=== PATIENT | female | born 1970 | race Caucasian/White ===

== ENCOUNTER → 2021-05-07 | Outpatient (CLI) | payer OTHER | LOC: LABNPT 08:39 | DX: Z53.9 Procedure and treatment not carried out, unspecified reason (principal) ==

== ENCOUNTER 2021-12-05 11:10 | Emergency (ER) | payer OTHER ==
[~2021-12-05] VITALS: Ht 160 cm; Wt 118.0 kg
[2021-12-05 11:37] VITALS: BP 150/80
[2021-12-05 11:47] LABS: BASOPHILS # (AUTO) 0.1 10^3/uL (0.0-0.1); BASOPHILS % (AUTO) 1 % (0-10); EOSINOPHILS # (AUTO) 0.2 10^3/uL (0.0-0.3); EOSINOPHILS % (AUTO) 2 % (0-10); HEMATOCRIT 44 % (35-52); HEMOGLOBIN 14.5 g/dL (11.5-16.0); LYMPHOCYTES # (AUTO) 3.4 10^3/uL (1.0-4.0); LYMPHOCYTES % (AUTO) 35 % (12-44); MEAN CORPUSCULAR HEMOGLOBIN 28 pg (25-34); MEAN CORPUSCULAR HGB CONC 33 g/dL (32-36); MEAN CORPUSCULAR VOLUME 86 fL (80-99); MEAN PLATELET VOLUME 9.8 fL (9.0-12.2); MONOCYTES # (AUTO) 0.5 10^3/uL (0.0-1.0); MONOCYTES % (AUTO) 5 % (0-12); NEUTROPHILS # (AUTO) 5.5 10^3/uL (1.8-7.8); NEUTROPHILS % (AUTO) 57 % (42-75); PLATELET COUNT 303 10^3/uL (130-400); WHITE BLOOD COUNT 9.7 10^3/uL (4.3-11.0)
--- NOTE | 2021-12-05 11:51 | ED Cardiac General ---
History of Present Illness General Chief Complaint: Chest Pain Stated Complaint: CHEST PAIN Nursing Triage Note: pt has has bilateral upper and lower ext swelling x 2 days, sob, and a-typical chest pain mid sternal. went to [facility], they sent pt here. Source: patient Exam Limitations: no limitations (LIZZETTE LANG APRN) History of Present Illness Date Seen by Provider: Dec 05, 2021 Time Seen by Provider: 11:23 Initial Comments This is a well-appearing 51-year-old female who was referred to the emergency department per [facility] urgent care for "chest pain". Patient states that she has been having increased shortness of breath, coughing, wheezing for the past week. States that she had same symptoms when she had bronchitis in the past and was concerned she was developing bronchitis again. However she was sent over for cardiac work-up due to aching chest pain underneath bilateral breasts. States pain has been present x 1 week. Currently rates 3/10. Denies fever, chills, nausea, vomiting, diarrhea, abdominal pain. (LIZZETTE LANG APRN) Allergies and Home Medications Patient Home Medication List Home Medication List Reviewed: Yes (LIZZETTE LANG APRN) Albuterol Sulfate (Ventolin Hfa) 1 Puff Puff, 2 PUFF INH Q4H Prescribed by: LIZZETTE LANG on 12/05/21 1243 Doxycycline Hyclate (Doxycycline Hyclate) 100 Mg Tablet, 100 MG PO BID Prescribed by: LIZZETTE LANG on 12/05/21 1243 Review of Systems Review of Systems Constitutional: see HPI EENTM: No Symptoms Reported Respiratory: See HPI Cardiovascular: No Symptoms Reported Gastrointestinal: No Symptoms Reported Genitourinary: No Symptoms Reported Musculoskeletal: see HPI Skin: no symptoms reported Psychiatric/Neurological: No Symptoms Reported Endocrine: No Symptoms Reported Hematologic/Lymphatic: No Symptoms Reported (LIZZETTE LANG APRN) Past Eraaaya-Getdpc-Jsunui Hx Patient Social History Tobacco Use?: No Use of E-Cig and/or Vaping dev: No Substance use?: No Alcohol Use?: No (LIZZETTE LANG APRN) Immunizations Up To Date Influenza Vaccine Up-to-Date: Yes; Up-to-Date First/Initial COVID19 Vaccinat: jul 30 Second COVID19 Vaccination Baldev: aug 31 Third COVID19 Vaccination Date: may 31 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 oz. kg; 46.00 BMI Method: General Appearance: No Apparent Distress, WD/WN HEENT: PERRL/EOMI, Normal ENT Inspection, Pharynx Normal, Moist Mucous Membranes Neck: Full Range of Motion, Normal Inspection, Non Tender, Supple Respiratory: No Accessory Muscle Use, No Respiratory Distress, Decreased Breath Sounds, Wheezing, Other (tenderness to chest wall under bilateral breast. ) Cardiovascular: Regular Rate, Rhythm, No Murmur, Normal Peripheral Pulses Gastrointestinal: Normal Bowel Sounds, Non Tender, Soft Extremity: Normal Inspection, Normal Range of Motion, Non Tender, No Calf Tenderness; No No Pedal Edema (swelling with no pitting edema ) Neurologic/Psychiatric: Alert, Oriented x3, No Motor/Sensory Deficits, Normal Mood/Affect Skin: Normal Color, Warm/Dry (LIZZETTE LANG APRN) Progress/Results/Core Measures Results/Orders Lab Results Laboratory Tests Test 12/05/21 11:20 Range/Units White Blood Count 9.7 4.3-11.0 10^3/uL Red Blood Count 5.12 H 3.80-5.11 10^6/uL Hemoglobin 14.5 11.5-16.0 g/dL Hematocrit 44 35-52 % Mean Corpuscular Volume 86 80-99 fL Mean Corpuscular Hemoglobin 28 25-34 pg Mean Corpuscular Hemoglobin Concent 33 32-36 g/dL Red Cell Distribution Width 12.2 10.0-14.5 % Platelet Count 303 130-400 10^3/uL Mean Platelet Volume 9.8 9.0-12.2 fL Immature Granulocyte % (Auto) 0 % Neutrophils (%) (Auto) 57 42-75 % Lymphocytes (%) (Auto) 35 12-44 % Monocytes (%) (Auto) 5 0-12 % Eosinophils (%) (Auto) 2 0-10 % Basophils (%) (Auto) 1 0-10 % Neutrophils # (Auto) 5.5 1.8-7.8 10^3/uL Lymphocytes # (Auto) 3.4 1.0-4.0 10^3/uL Monocytes # (Auto) 0.5 0.0-1.0 10^3/uL Eosinophils # (Auto) 0.2 0.0-0.3 10^3/uL Basophils # (Auto) 0.1 0.0-0.1 10^3/uL Immature Granulocyte # (Auto) 0.0 0.0-0.1 10^3/uL Prothrombin Time 21.9 H 12.2-14.7 SEC INR Comment 1.9 H 0.8-1.4 Activated Partial Thromboplast Time 39 H 24-35 SEC D-Dimer < 0.27 0.00-0.49 UG/ML Sodium Level 138 135-145 MMOL/L Potassium Level 3.9 3.6-5.0 MMOL/L Chloride Level 101 98-107 MMOL/L Carbon Dioxide Level 28 21-32 MMOL/L Anion Gap 9 5-14 MMOL/L Blood Urea Nitrogen 15 7-18 MG/DL Creatinine 0.90 0.60-1.30 MG/DL Estimat Glomerular Filtration Rate 77 BUN/Creatinine Ratio 17 Glucose Level 259 H 70-105 MG/DL Calcium Level 10.1 8.5-10.1 MG/DL Corrected Calcium 9.9 8.5-10.1 MG/DL Magnesium Level 1.7 1.6-2.4 MG/DL Total Bilirubin 0.2 0.1-1.0 MG/DL Aspartate Amino Transf (AST/SGOT) 19 5-34 U/L Alanine Aminotransferase (ALT/SGPT) 30 0-55 U/L Alkaline Phosphatase 85 40-136 U/L Creatine Kinase MB 2.0 <6.6 NG/ML Myoglobin 48.3 10.0-92.0 NG/ML Troponin I < 0.028 <0.028 NG/ML B-Type Natriuretic Peptide < 10.0 <100.0 PG/ML Total Protein 7.6 6.4-8.2 GM/DL Albumin 4.2 3.2-4.5 GM/DL (DEON VAUGHN MD) My Orders Orders - DEON VAUGHN MD Ekg Tracing (12/05/21 11:13) (DEON VAUGHN MD) Vital Signs/I&O 12/05/21 11:37 Temp 36.5 Pulse 105 Resp 22 B/P (MAP) 150/80 (103) O2 Delivery Room Air (DEON VAUGHN MD) Blood Pressure Mean: 103 Progress Progress Note : Progress Note Patient examined and in no acute distress. States she has history of Factor V Leiden and take Xarelto daily. Reports generalized swelling, but does note she has had increased sodium consumption in her diet. No swelling with redness, warmth, or pain. Orders placed for cardiac workup with D-dimer. States she is taking her Xarelto daily as prescribed. Labs reviewed. D-Dimer within normal limits. Cardiac workup negative for STEMI/NSTEMI. CXR neg for acute pathology. Discussed that she is likely experien cing Bronchitis and will treat with Albuterol inhaler for SOA and cover with Doxycycline. However, if her symptoms worsen she is to return to the ER. She is agreeable with discharge POC. (LIZZETTE LANG APRN) Initial ECG Impression Date: Dec 05, 2021 Initial ECG Impression Time: 11:23 Initial ECG Rate: 101 Initial ECG Rhythm: S.Tach Initial ECG Impression: Nonspecific Changes Initial ECG Comparisson: No Previous ECG Available (LIZZETTE LANG APRN) Diagnostic Imaging Diagonstic Imaging: Xray Plain Films/CT/US/NM/MRI: chest Comments [facility]. [place], [place] NAME: [facility] REC#: [id number] PT STATUS: DEP ER : [id number] PHYSICIAN: LIZZETTE LANG APRN ADMIT DATE: 12/05/21/ER Signed Date of Exam:12/05/21 CHEST 1 VIEW, AP/PA ONLY INDICATION: Chest pain. No relevant comparison. No focal consolidation, failure pattern, effusion or pneumothorax. Impression: 1. No acute appearing abnormality. Dictated by: Dictated on workstation # [id number] Dict: 12/05/21 1212 Trans: 12/05/21 1658 [facility] [id number] Interpreted by: MARIBEL FROST Electronically signed by: MARIBEL FROST 12/05/21 1658 Reviewed: Reviewed by Me (LIZZETTE LANG AIRPLANE FLIGHT ATTENDANT SUPERVISOR) Departure Impression Primary Impression: Bronchitis Disposition: 01 HOME, SELF-CARE Condition: Improved Departure-Patient Inst. Decision time for Depature: 12:39 (LIZZETTE LANG AIRPLANE FLIGHT ATTENDANT SUPERVISOR) Referrals: JODY HUMPHRIES MD (PCP/Family) Primary Care Physician Patient Instructions: Acute Bronchitis, Adult (DC) Add. Discharge Instructions: Plan: 1. Take Doxycycline twice a day for 7 days. Avoid direct sunlight as this medication can cause you to sunburn easier. 2. Use Albuterol 2 puffs every 4 hours as needed for shortness of breath. 3. Limit the amount of salt you eat as this can cause you to swell. Keep your legs elevated to see if this will improve swelling. You can also try compression hose over the counter. 4. Follow up with your doctor later this week. 5. Return for any new, concerning, or worsening symptoms. All discharge instructions reviewed with patient and/or family. Voiced understanding. Scripts Albuterol Sulfate (VENTOLIN HFA) 1 Puff Puff 2 PUFF INH Q4H for 14 Days, #1 UNIT 0 Refills 1 PUFF = 90 MCG Prov: LIZZETTE LANG AIRPLANE FLIGHT ATTENDANT SUPERVISOR 12/05/21 Doxycycline Hyclate (Doxycycline Hyclate) 100 Mg Tablet 100 MG PO BID for 7 Days, #14 TAB 0 Refills Prov: LIZZETTE LANG APRN 12/05/21 ATTENDING PHYSICIAN NOTE: I was physically present as attending physician in the emergency department during the care of this patient, but I was not directly involved in the decision making or delivery of care for this patient. (DEON VAUGHN MD) LIZZETTE LANG APRN Dec 05, 2021 11:51 DEON VAUGHN MD Dec 07, 2021 23:38
[2021-12-05 11:59] LABS: ALBUMIN 4.2 GM/DL (3.2-4.5); BILIRUBIN,TOTAL 0.2 MG/DL (0.1-1.0); CALCIUM 10.1 MG/DL (8.5-10.1); CREATININE SERUM 0.9 MG/DL (0.60-1.30); MAGNESIUM 1.7 MG/DL (1.6-2.4); POTASSIUM 3.9 MMOL/L (3.6-5.0); TOTAL PROTEIN 7.6 GM/DL (6.4-8.2)
[2021-12-05 12:08] LABS: INR 1.9 (0.8-1.4); PROTHROMBIN TIME PATIENT 21.9 SEC (12.2-14.7)
--- NOTE | 2021-12-05 12:30 | Diagnostic Imaging Report ---
INDICATION: Chest pain. No relevant comparison. No focal consolidation, failure pattern, effusion or pneumothorax. Impression: 1. No acute appearing abnormality. Dictated by: Dictated on workstation # [id number]
[2021-12-05] MEDS ORDERED: DOXY100T2 PO (12:43)
[2021-12-05] MEDS ORDERED: RT-ALBUINH INH (12:43)
== END 2021-12-05 13:03 | disposition home or self-care (01) ==
LOC: EDUNIT# 11:10 → ER 11:13
DX: J40 Bronchitis, not specified as acute or chronic (principal)
CPT/HCPCS: 36415; 71045; 80053; 82553; 83735; 83874; 83880; 84484; 85025; 85379; 85610; 85730; 93005; 93041